=== PATIENT | female | born 1945 | race Two or more races ===

== ENCOUNTER 2021-12-17 11:15 | Emergency (ER) | payer OTHER ==
[~2021-12-17] VITALS: Ht 154.9 cm; Wt 63.5 kg
== END 2021-12-17 21:14 | disposition home or self-care (01) ==
LOC: ER 11:15
DX: K57.92 Diverticulitis of intestine, part unspecified, without perforation or abscess without bleeding (principal); E03.9 Hypothyroidism, unspecified; D01.0 Carcinoma in situ of colon

== ENCOUNTER 2022-05-03 12:00 | Inpatient (IN) | payer OTHER ==
[~2022-05-03] VITALS: Ht 154.9 cm; Wt 61.2 kg
[2022-05-03] MEDS ORDERED: LEVOTHYROXINE25 MCG PO (16:08)
[2022-05-03] MEDS ORDERED: ALPRAZOLAM2 M1 PO (16:09)
[2022-05-03] MEDS ORDERED: SUCRA PO (16:11)
[2022-05-08] MEDS ORDERED: PAROXETINE HCL30 MG (09:10)
[2022-05-08] MEDS ORDERED: OMEGA-3 ACID ETH1 GM (09:11)
[2022-05-08] MEDS ORDERED: PANTOPRAZOLE SO40 MG (09:11)
[2022-05-08] MEDS ORDERED: OLOPATADINE HCL5 ML (09:11)
[2022-05-08] MEDS ORDERED: SUCRALFATE1 GM (09:11)
[2022-05-08] MEDS ORDERED: MONTELUKAST SOD10 MG (09:11)
== END 2022-05-11 23:03 | disposition home or self-care (01) | DRG 330 ==
LOC: ADM 12:00 → O/R 05-08 06:12 → SURH 05-08 06:12 → EDSTATUS 05-08 12:00 → CIR.AMB 05-08 12:00 → SURH 05-11 23:03
PROVIDERS: ADMIT Colon & Rectal Surgery; ATTEND Colon & Rectal Surgery
PROC: 0DBP4ZZ Excision of Rectum, Percutaneous Endoscopic Approach (ICD-10-PCS; 2022-05-08)
PROC: 0DTN4ZZ Resection of Sigmoid Colon, Percutaneous Endoscopic Approach (ICD-10-PCS; principal; 2022-05-08 07:00)
DX: K57.32 Diverticulitis of large intestine without perforation or abscess without bleeding (principal); K92.1 Melena; D12.6 Benign neoplasm of colon, unspecified; Z20.822 Contact with and (suspected) exposure to COVID-19

== ENCOUNTER → 2023-04-15 | Emergency (ER) | payer OTHER ==
[~2023-04-15] VITALS: Ht 154.9 cm; Wt 56.7 kg
[~2023-04-15] MED LIST: ALPRAZOLAM2 M1 PO; LEVOTHYROXINE25 MCG PO; MONTELUKAST SOD10 MG; OLOPATADINE HCL5 ML; OMEGA-3 ACID ETH1 GM; PANTOPRAZOLE SO40 MG; PAROXETINE HCL30 MG; SUCRA PO; SUCRALFATE1 GM
== END | disposition left against medical advice (07) ==
LOC: ER 14:14
DX: M47.892 Other spondylosis, cervical region (principal); M41.80 Other forms of scoliosis, site unspecified; Z88.0 Allergy status to penicillin